=== PATIENT | female | born 1995 | race Caucasian/White ===

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

== ENCOUNTER → 2018-04-04 | Outpatient (REF) | payer BC ==
[~2018-04-04] MED LIST changes: -PHENYLEPHRINE 0.5% NASAL SPRAY 15 ML As Ordered ONE; +PRED20TA PO
[2018-04-04 17:58] LABS: CHLAMYDIA DNA AMPLIFICATION NEGATIVE (NEGATIVE); GC DNA AMPLIFICATION NEGATIVE (NEGATIVE)
== END ==
LOC: M SFHCWAGY 15:53
PROVIDERS: ATTEND Nurse Practitioner Women's Health
DX: Z11.3 Encounter for screening for infections with a predominantly sexual mode of transmission (principal)

== ENCOUNTER 2018-04-06 22:47 | Emergency (ER) | payer BC ==
[~2018-04-06] VITALS: Ht 167.6 cm; Wt 73.0 kg
[~2018-04-06 22:47] MED LIST changes: -PRED20TA PO
[2018-04-06] MEDS ORDERED: predniSONE 20 MG TAB PO ONE (23:30)
[2018-04-06] MEDS ORDERED: FAMOTIDINE 20 MG TAB PO ONE (23:30)
[2018-04-07 00:45] VITALS: BP 135/72
[2018-04-07] MEDS ORDERED: PRED20TA PO (00:57)
== END 2018-04-07 01:03 | disposition home or self-care (01) ==
LOC: EDBD 22:47 → M ED 22:47
DX: T78.40XA Allergy, unspecified, initial encounter (principal); Y92.511 Restaurant or cafe as the place of occurrence of the external cause; Y93.89 Activity, other specified; Z79.899 Other long term (current) drug therapy

== ENCOUNTER → 2019-09-11 | Outpatient (REF) | payer BC ==
[~2019-09-11] MED LIST changes: +PRED20TA PO
[2019-09-12 03:44] LABS: CHLAMYDIA DNA AMPLIFICATION NEGATIVE (NEGATIVE); GC DNA AMPLIFICATION NEGATIVE (NEGATIVE)
== END ==
LOC: M SFHCWAGY 18:15
PROVIDERS: ATTEND Nurse Practitioner Women's Health
DX: Z11.3 Encounter for screening for infections with a predominantly sexual mode of transmission (principal)
CPT/HCPCS: 87661; G0123

== ENCOUNTER → 2020-04-11 | Outpatient (CLI) | payer BC ==
--- NOTE | 2020-04-11 12:55 | REP ---
INDICATION: CHEST PAIN COMPARISON: 07/12/2006 TECHNIQUE: PA and lateral. FINDINGS: The mediastinum and cardiac silhouette are normal. The lung cao are clear and without acute consolidation, effusion, or pneumothorax. The skeletal structures are intact and normal. IMPRESSION: No acute cardiopulmonary process. <Electronically signed by Juan Jackson > 04/11/20 [id number]
== END ==
LOC: M WUC 12:18
PROVIDERS: ATTEND Physician Assistant
DX: R07.9 Chest pain, unspecified (principal); R00.0 Tachycardia, unspecified; F41.9 Anxiety disorder, unspecified